=== PATIENT | female | born 1945 | race Two or more races ===

== ENCOUNTER 2019-05-26 01:13 | Inpatient (IN) | payer MEDICARE, OTHER ==
[~2019-05-26] VITALS: Ht 149.9 cm; Wt 66.7 kg
[2019-05-26 04:30] VITALS: BP 156/66
--- NOTE | 2019-05-26 04:30 | NUR ---
GPS ADMISSION NOTES: ADMITTED THIS 74-Y/O, FEMALE, FROM [facility], ARRIVED ON THIS UNIT AT 0430 VIA GURNEY WITH 2 EMT'S VIA AMBULANCE. PATIENT ADMITTED ON 5150 HOLD FOR DTS. PER HOLD PT. STATED SHE WANTED TO KILL HERSELF BY WALKING IN FRONT OF A SPEEDING CAR IN THE STREET. PATIENT STATED SHE DID NOT WANT TO LIVE ANYMORE. UPON FACE TO FACE ASSESSMENT, PATIENT IS A&O X3-4, DEPRESSED, UNKEMPT, DISHEVELED, CALM AND COOPERATIVE WITH CARE. AMBULATORY WITH UNSTEADY GAIT. IN NO APPARENT DISTRESS NOTED. DENIES SI/HI/AVH AT THIS TIME. SKIN ASSESSMENT DONE, PICTURES TAKEN & PLACED IN THE CHART. WOUND CONSULT ORDERED. PATIENT REFUSED TO SIGN ADMISSION CONSENTS, STATES "I AM EXHAUSTED". PT'S RIGHTS HANDBOOK & PT. GUIDELINES BOOK GIVEN & DISCUSSED TO THE PATIENT. PT BELONGINGS WERE INVENTORIED & CHECKED FOR CONTRABAND. PT. IS UNDER THE PSYCHIATRIC CARE OF DR. PALMA, ORDERS OBTAINED & UNDER THE MEDICAL CARE OF DR. BURLESON. PATIENT EDUCATED TO THE USE OF CALL GARCIA. BED ALARM ON. ENVIRONMENTAL SAFETY CHECK DONE. BED LOCKED & IN LOW POSITION. WILL CONTINUE TO MONITOR Q15 MINUTES FOR SAFETY & BEHAVIOR.
[2019-05-26] MEDS ORDERED: MAG HYDROX/AL HYDROX/SIMETH 30 ML UDC PO PRN (05:00)
[2019-05-26] MEDS ORDERED: MAGNESIUM HYDROXIDE 30 ML UDC PO PRN (05:00)
[2019-05-26] MEDS ORDERED: BLOOD SUGAR DIAGNOSTIC 1 EACH STRIP IN ONE (05:00)
[2019-05-26] MEDS ORDERED: METF-440 PO (05:30)
[2019-05-26] MEDS ORDERED: INSU100C10 SQ (05:30)
[2019-05-26] MEDS ORDERED: INSU100V7 SQ (05:30)
[2019-05-26] MEDS ORDERED: BENZ0.5T43 PO (05:30)
[2019-05-26] MEDS ORDERED: ALBU18HF2 INH (05:30)
[2019-05-26] MEDS ORDERED: DONE5TAB34 PO (05:30)
[2019-05-26] MEDS ORDERED: GLIP5TAB13 PO (05:30)
[2019-05-26] MEDS ORDERED: LEVO200T8 PO (05:30)
[2019-05-26] MEDS ORDERED: MEMA5TAB42 PO (05:30)
[2019-05-26] MEDS ORDERED: HALO2ORA PO (05:30)
[2019-05-26] MEDS ORDERED: ATOR10TA PO (05:30)
[2019-05-26] MEDS ORDERED: DEXTROSE 50%-WATER 50 ML DISP.SYRIN IV PRN ×3 (06:00→12:30)
[2019-05-26] MEDS ORDERED: INSULIN REGULAR, HUMAN 100 UNIT/ML 3 ML VIAL SQ PRN ×2 (06:00→07:00)
[2019-05-26] MEDS ORDERED: *INSULIN REGULAR(HUMULIN R)HUM 100 UNIT/ML VIAL SQ PRN ×2 (06:00→07:00)
--- NOTE | 2019-05-26 06:10 | NUR ---
GPS-RN CALLED [employer] SPOKE WITH [employer] DRIVER COURTNEY ARBOLEDA NOTIFIED REGARDING PATIENT'S ADMISSION AND MED RECON NEEDS TO BE RECONCILED. LEFT VOICE MESSAGE TO PATIENT'S SON LESVIA WILL ENDORSE TO THE DAY SHIFT NURSE FOR CONTINUITY OF CARE.
[2019-05-26] MEDS ORDERED: BLOOD SUGAR DIAGNOSTIC 1 EACH STRIP VI SCH (07:30)
[2019-05-26] MEDS: BLOOD SUGAR DIAGNOSTIC 1 EACH STRIP VI SCH ×2 (07:44→12:09)
[2019-05-26 08:00] VITALS: BP 152/73
[2019-05-26 08:31] LABS: ALBUMIN 2.8 g/dL (3.4-5.0); BILIRUBIN,TOTAL 0.3 mg/dL (0.2-1.0); POTASSIUM 4.5 mmol/L (3.5-5.1); TOTAL PROTEIN, SERUM 6.8 g/dL (6.4-8.2)
[2019-05-26] MEDS: NICOTINE PATCH (7MG) 7 MG PATCH.TD24 TD SCH (09:00)
[2019-05-26] MEDS: ACETAMINOPHEN 325 MG TABLET PO PRN (09:38)
[2019-05-26] MEDS ORDERED: Z GUARD REMEDY 2 OZ OINT TP PRN (10:30)
--- NOTE | 2019-05-26 10:32 | NUR ---
WOUND CARE CONSULT: PT PRESENTS WITH PIGMENT IRREGULARITIES, DRY SCRATCH ON RT BUTTOCK AND RASH TO BILATERAL ABDOMINAL/GROIN FOLDS, PRESENT ON ADMISSION. RECOMMENDATIONS MADE FOR SKIN PROTECTION AND SKIN CARE. DISCUSSED WITH NURSING STAFF. WILL SEE PRN. PT IS AMBULATORY AND CONTINENT. Addendum: 05/26/19 at 1034 by CURTIS TOLEDO WNDNU Amended: Links added.
--- NOTE | 2019-05-26 11:15 | NUR ---
Family Contact: SW called the pts son, Gabriel ([phone]), and left a message on his voicemail stating that the SW would like to discuss the pts treatment and discharge plan.
[2019-05-26] MEDS: Z GUARD REMEDY 2 OZ OINT TP SCH (11:20)
--- NOTE | 2019-05-26 11:28 | NUR ---
Facility Contact: SW contacted the pts previous facility, [facility] ([phone]), and spoke to the physicist cryogenics who stated that she is familiar with the pt but will have the appropriate admissions individuals call the SW to discuss.
[2019-05-26] MEDS ORDERED: ALBUTEROL FS 2.5 MG/0.5 ML VIAL.NEB NEB PRN (12:30)
[2019-05-26] MEDS: BLOOD SUGAR DIAGNOSTIC 1 EACH STRIP IN SCH ×3 (13:10→21:51)
--- NOTE | 2019-05-26 15:08 | NUR ---
Initial Discharge Plan: Pt currently resides at [address] located at [address] [place], [place] [address]; ([phone]). Per pt, she would like to be discharged to a board and care. SW will work with the pt and the MD regarding appropriate discharge planning. SW will form a safe and proper discharge plan.
--- NOTE | 2019-05-26 15:22 | NUR ---
GROUP NOTE: SW assessed pts ability to participate in group therapy nn this present day discussing "reality testing." Pt not appropriate for group at this time due to her anxious and paranoid behavior. Pt lacks boundaries and is unable to follow directions and engage in a meaningful conversation.
[2019-05-26] MEDS: BENZTROPINE MESYLATE (1 MG) 1 MG TABLET PO SCH (15:49)
[2019-05-26 16:00] VITALS: BP 139/64
[2019-05-26] MEDS: CLOTRIMAZOLE 1% 15 GM TUBE TP SCH (16:40)
[2019-05-26] MEDS: HALOPERIDOL 5 MG TABLET PO SCH (16:52)
[2019-05-26] MEDS: INSULIN REGULAR, HUMAN 100 UNIT/ML 3 ML VIAL SQ PRN ×2 (17:35→22:25)
[2019-05-26] MEDS: BISACODYL (5 MG) 5 MG TABLET.DR PO PRN (18:32)
[2019-05-26 20:33] VITALS: BP 123/76
[2019-05-26] MEDS: TRAZODONE 50 MG TABLET PO SCH (22:14)
[2019-05-26] MEDS: INSULIN GLARGINE, 100 UNIT/ML CARTRIDGE SQ SCH (22:14)
[2019-05-26] MEDS: ATORVASTATIN 10 MG TABLET PO SCH (22:15)
[2019-05-26] MEDS: DONEPEZIL 5 MG TABLET PO SCH (22:15)
[2019-05-26] MEDS: TEMAZEPAM 7.5 MG CAPSULE PO PRN (23:39)
[2019-05-27] MEDS: BENZTROPINE MESYLATE (1 MG) 1 MG TABLET PO SCH ×2 (03:23→17:03)
[2019-05-27] MEDS: HALOPERIDOL 5 MG TABLET PO SCH ×2 (03:24→17:02)
[2019-05-27] MEDS: BLOOD SUGAR DIAGNOSTIC 1 EACH STRIP IN SCH ×4 (07:35→22:16)
[2019-05-27 08:00] VITALS: BP 114/65
[2019-05-27] MEDS: LEVOTHYROXINE SODIUM 100 MCG TABLET PO SCH (08:06)
[2019-05-27] MEDS: NICOTINE PATCH (7MG) 7 MG PATCH.TD24 TD SCH (08:06)
[2019-05-27] MEDS: Z GUARD REMEDY 2 OZ OINT TP SCH (08:07)
[2019-05-27] MEDS: CLOTRIMAZOLE 1% 15 GM TUBE TP SCH ×2 (08:07→17:03)
[2019-05-27] MEDS: glipiZIDE 5 MG TABLET PO SCH (08:09)
[2019-05-27] MEDS: MEMANTINE HCL 5 MG TABLET PO SCH (08:09)
[2019-05-27] MEDS: INSULIN REGULAR, HUMAN 100 UNIT/ML 3 ML VIAL SQ PRN ×2 (08:11→17:39)
[2019-05-27] MEDS: INSULIN GLARGINE, 100 UNIT/ML CARTRIDGE SQ SCH ×2 (08:20→21:00)
[2019-05-27] MEDS: ACETAMINOPHEN 325 MG TABLET PO PRN ×2 (09:04→17:37)
--- NOTE | 2019-05-27 09:05 | NUR ---
RN NOTE: PATIENT C/O HEADACHE. PRN TYLENOL GIVEN.
[2019-05-27 12:03] LABS: BASOPHILS % (AUTO) 0.3 % (0.0-2.0); EOSINOPHILS % (AUTO) 2.2 % (0.0-6.0); HEMATOCRIT 36 % (33-45); HEMOGLOBIN 11.9 g/dL (11.5-14.8); LYMPHOCYTES # (AUTO) 1.4 /CMM (0.8-4.8); LYMPHOCYTES % (AUTO) 14.3 % (20.0-44.0); MEAN CORPUSCULAR HGB CONC 33 g/dl (31.0-36.0); MEAN CORPUSCULAR VOLUME 90 fL (82-100); MONOCYTES # (AUTO) 0.9 /CMM (0.1-1.30); MONOCYTES % (AUTO) 8.7 % (2.0-12.0); NEUTROPHILS # (AUTO) 7.4 /CMM (1.8-8.9); NEUTROPHILS % (AUTO) 74.5 % (43.0-81.0); PLATELET COUNT (AUTO) 339 /CMM (150-450); RED BLOOD CELL COUNT(AUTO) 4.05 MIL/uL (4.0-5.2); WHITE BLOOD COUNT (AUTO) 9.9 K/uL (4.3-11.0)
--- NOTE | 2019-05-27 12:06 | NUR ---
Facility Contact: SW called [facility] ([phone]) and spoke to Attila who stated that they had been in contact with Social Security and they have been informed that the first check will come in June. SW confirmed that the pt can return to the facility at the time of discharge.
[2019-05-27 12:14] LABS: CALCIUM, SERUM 9.7 mg/dL (8.5-10.1); CREATININE 0.9 mg/dL (0.6-1.3); POTASSIUM 4.3 mmol/L (3.5-5.1)
[2019-05-27 12:46] LABS: THYROID STIMULATING HORMONE 0.159 uIU/mL (0.358-3.74)
[2019-05-27 16:00] VITALS: BP 119/55
--- NOTE | 2019-05-27 16:24 | NUR ---
Group Note: SW encouraged pt to participate in group therapy on 05/27/19 at 2pm discussing social supports. Pt is not appropriate for group at this time due to her anxious and paranoid behavior. Pt was seen in the hallway with the phone calling social security and appeared to be disorganized. Pt was deemed inappropriate for group therapy at this time.
[2019-05-27] MEDS: DIVALPROEX SODIUM 250 MG TABLET.DR PO SCH (17:02)
--- NOTE | 2019-05-27 19:01 | NUR ---
PATIENT C/O PAIN. PRN TYLENOL GIVEN.
--- NOTE | 2019-05-27 19:33 | NUR ---
GPS RN NOTE RECEIVED PATIENT RESTING IN BED. IN & OUT OF BED AT TIMES. A & O X 3. NO ACUTE DISTRESS, NO C/O PAIN VERBALIZED AT THIS TIME. EASILY AGITATED. DENIES SI/HI/AVH AT THIS TIME. WILL CONTINUE TO MONITOR FOR SAFETY & BEHAVIOR.
[2019-05-27] MEDS ORDERED: ATORVASTATIN 10 MG TABLET ONE (21:48)
[2019-05-27] MEDS: TRAZODONE 50 MG TABLET PO SCH (22:03)
[2019-05-27] MEDS: DONEPEZIL 5 MG TABLET PO SCH (22:03)
[2019-05-27] MEDS: ATORVASTATIN 10 MG TABLET PO SCH (22:03)
--- NOTE | 2019-05-27 22:17 | NUR ---
GPS RN NOTE PATIENT'S BS WAS CHECKED EARLIER, BS LEVEL WAS 81MG/DL, SNACK & ORANGE JUICE WAS GIVEN, RECHECKED BS LEVEL AGAIN & NOTED TO BE 108 MG/DL. HELD SCHEDULED LANTUS AT 2100. PATIENT ALSO REFUSED TO GET INSULIN DUE TO BS BEING 108 MG/DL. WILL CONTINUE TO MONITOR FOR ANY CHANGES.
--- NOTE | 2019-05-28 01:45 | NUR ---
GPS RN NOTE PATIENT ASKED TO CHECK HER BLOOD SUGAR AND INSISTED TO GET LANTUS INSULIN AT THIS TIME. BS LEVEL CHECKED & IS 120MG/DL. PATIENT DID NOT FINISH HER SNACK. EXPLAINED TO THE PATIENT THAT IF INSULIN IS GIVEN TO HER, BS LEVEL WILL DROP. PATIENT WAS REDIRECTED AT THIS TIME BUT IS COMPLAINT AND NON COMPLAINT WITH CARE. WILL CONTINUE TO MONITOR FOR ANY CHANGES.
[2019-05-28] MEDS: HALOPERIDOL 5 MG TABLET PO SCH ×2 (02:00→14:27)
[2019-05-28] MEDS: BENZTROPINE MESYLATE (1 MG) 1 MG TABLET PO SCH ×2 (02:30→14:27)
[2019-05-28] MEDS: LORAZEPAM 0.5 MG TABLET PO PRN ×2 (02:49→09:48)
--- NOTE | 2019-05-28 02:49 | NUR ---
PRN ATIVAN GIVEN PATIENT IS VERY ANXIOUS & RESTLESS AT THIS TIME, ASKED TO TAKE ATIVAN, PRN ATIVAN 0.5MG PO GIVEN. WILL REASSESS FOR EFFECTIVENESS.
--- NOTE | 2019-05-28 02:54 | NUR ---
REFUSED HALDOL & COGENTIN PATIENT REFUSED TO TAKE HALDOL AT 0200 & COGENTIN 1 MG AT 0230, STATED" I REFUSE & I HAVE THE RIGHT TO REFUSE." WILL CONTINUE TO MONITOR.
--- NOTE | 2019-05-28 03:14 | NUR ---
GPS/RN NOTE: REQUESTING ACCUCHECK, CLAIMING SHE FEELS WEAK. ACCUCHECK 155 MG/DL.
--- NOTE | 2019-05-28 06:44 | NUR ---
GPS RN CLOSING NOTE PATIENT SLEPT 6 HOURS, NO ACUTE DISTRESS NOTED. ANXIOUS, EASILY IRRITATED, ATIVAN GIVEN AT NIGHT. SAFETY MEASURES IN PLACE. WILL ENDORSE TO AM RN TO CONTINUE TO MONITOR FOR SAFETY & BEHAVIOR.
[2019-05-28] MEDS: BLOOD SUGAR DIAGNOSTIC 1 EACH STRIP IN SCH ×4 (07:30→21:49)
[2019-05-28] MEDS: INSULIN REGULAR, HUMAN 100 UNIT/ML 3 ML VIAL SQ PRN ×2 (08:13→14:49)
[2019-05-28] MEDS: INSULIN GLARGINE, 100 UNIT/ML CARTRIDGE SQ SCH ×2 (08:13→21:00)
[2019-05-28] MEDS: LEVOTHYROXINE SODIUM 100 MCG TABLET PO SCH (08:33)
[2019-05-28] MEDS: DIVALPROEX SODIUM 250 MG TABLET.DR PO SCH ×3 (08:33→16:44)
[2019-05-28] MEDS: MEMANTINE HCL 5 MG TABLET PO SCH (08:34)
[2019-05-28] MEDS: glipiZIDE 5 MG TABLET PO SCH (08:34)
[2019-05-28] MEDS: Z GUARD REMEDY 2 OZ OINT TP SCH (08:35)
[2019-05-28] MEDS: NICOTINE PATCH (7MG) 7 MG PATCH.TD24 TD SCH (08:35)
[2019-05-28] MEDS: CLOTRIMAZOLE 1% 15 GM TUBE TP SCH ×2 (08:35→16:46)
--- NOTE | 2019-05-28 09:00 | NUR ---
Family Contact: SW called the pts son, Gabriel ([phone]), and left a message on his voicemail stating that the SW would like to discuss the pts treatment and discharge plan.
--- NOTE | 2019-05-28 09:48 | NUR ---
PATIENT C/O ANXIETY. PRN ATIVAN GIVEN
--- NOTE | 2019-05-28 14:30 | NUR ---
CARE TRANSFERRED TO ALAN CATALAN FROM REGISTRY
[2019-05-28 16:00] VITALS: BP 139/78
--- NOTE | 2019-05-28 19:05 | NUR ---
GPS RN NOTES RECEIVED PT IN BED AWAKE, NO S/S OR COMPLAINTS OF PAIN AT THIS TIME. RESPIRATIONS EVEN AND UNLABORED WITH NO S/S OF ACUTE DISTRESS OR SOB NOTED. PT A/O X3 . PT DENIES SI/HI AT THIS TIME. SAFETY MEASURES IN PLACE WITH BED IN LOWEST LOCKED POSITION WITH SIDE RAILS UP X2. CALL GARCIA WITHIN REACH. WILL CONTINUE TO MONITOR.
[2019-05-28] MEDS: TRAZODONE 50 MG TABLET PO SCH (21:45)
[2019-05-28] MEDS: DONEPEZIL 5 MG TABLET PO SCH (21:46)
[2019-05-28] MEDS: ATORVASTATIN 10 MG TABLET PO SCH (21:46)
[2019-05-29] MEDS: HALOPERIDOL 5 MG TABLET PO SCH ×3 (01:31→20:21)
[2019-05-29] MEDS: BENZTROPINE MESYLATE (1 MG) 1 MG TABLET PO SCH ×3 (01:31→20:21)
--- NOTE | 2019-05-29 01:31 | NUR ---
GPS NOTES PT REFUSED HALDOL AND COGENTIN. PT STATED "I'M ALREADY SLEEPING, DON'T WAKE ME UP, JUST LET ME SLEEP." WILL CONTINUE TO MONITOR.
[2019-05-29] MEDS: LORAZEPAM 0.5 MG TABLET PO PRN ×2 (02:39→14:13)
--- NOTE | 2019-05-29 07:05 | NUR ---
GPS RN NOTES RECEIVED PT IN BED AWAKE, NO S/S OR COMPLAINTS OF PAIN AT THIS TIME. RESPIRATIONS EVEN AND UNLABORED WITH NO S/S OF ACUTE DISTRESS OR SOB NOTED THROUGHOUT SHIFT. PT A/O X3 . PT DENIES SI/HI AT THIS TIME. SAFETY MEASURES IN PLACE WITH BED IN LOWEST LOCKED POSITION WITH SIDE RAILS UP X2. CALL GARCIA WITHIN REACH. WILL ENDORSE TO ONCOMING NURSE FOR MARIA ELENA.
[2019-05-29] MEDS: BLOOD SUGAR DIAGNOSTIC 1 EACH STRIP IN SCH ×4 (07:30→21:39)
--- NOTE | 2019-05-29 07:30 | NUR ---
PT. REFUSED ACCU-CHECK.
[2019-05-29] MEDS: MEMANTINE HCL 5 MG TABLET PO SCH ×2 (09:00→09:51)
[2019-05-29] MEDS: glipiZIDE 5 MG TABLET PO SCH ×2 (09:00→09:51)
[2019-05-29] MEDS: NICOTINE PATCH (7MG) 7 MG PATCH.TD24 TD SCH ×2 (09:00→09:50)
[2019-05-29] MEDS: DIVALPROEX SODIUM 250 MG TABLET.DR PO SCH ×5 (09:00→17:49)
[2019-05-29] MEDS: INSULIN GLARGINE, 100 UNIT/ML CARTRIDGE SQ SCH ×2 (09:00→21:29)
--- NOTE | 2019-05-29 09:00 | NUR ---
PURA NOTIFIED THAT PT. IS REFUSING ACCU-CHECKS SO LANTUS NOT BEING GIVEN. WELL MADE AWARE THAT SHE IS GENERALLY NON-COMPLIANT.
[2019-05-29] MEDS: LEVOTHYROXINE SODIUM 100 MCG TABLET PO SCH (09:50)
[2019-05-29] MEDS: CLOTRIMAZOLE 1% 15 GM TUBE TP SCH ×2 (09:59→17:00)
[2019-05-29] MEDS: Z GUARD REMEDY 2 OZ OINT TP SCH (10:00)
[2019-05-29] MEDS ORDERED: BENZTROPINE MESYLATE (1 MG) 1 MG TABLET PO SCH (11:00)
[2019-05-29] MEDS ORDERED: HALOPERIDOL 5 MG TABLET PO SCH (11:00)
--- NOTE | 2019-05-29 11:02 | NUR ---
MED TIMES CHANGED FOR HALDOL AND COGENTIN-PT. REFUSING BOTH MEDS.
--- NOTE | 2019-05-29 12:54 | NUR ---
REFUSED ACCU-CHECK AT LUNCH TIME.
--- NOTE | 2019-05-29 13:01 | NUR ---
IN RM. A LOT,LYING IN BED,STATES DOES NOT WANT NURSE TO AWAKEN HER.EASILY AGITATED.
[2019-05-29] MEDS: INSULIN REGULAR, HUMAN 100 UNIT/ML 3 ML VIAL SQ PRN ×3 (14:06→21:31)
--- NOTE | 2019-05-29 14:06 | NUR ---
RUNNING UP TO NURSES'S STATION STATES "MY BLOOD SUGAR IS LOW".RN CHECKED AND VERIFIED BGL 290 COVERED WITH INSULIN REG. SL SCALE.HAD EARLIER REFUSED ACCU-CHECK WELL COVERAGE TODAY WITH SL SCALE INSULIN.
--- NOTE | 2019-05-29 14:13 | NUR ---
GIVEN ATIVAN PER PT. REQUEST.AGITATED.
--- NOTE | 2019-05-29 15:47 | NUR ---
RESTING IN RM.
--- NOTE | 2019-05-29 17:09 | NUR ---
REFUSED KAY. MEDS AND ACCU-CHECK.
[2019-05-29 20:16] VITALS: BP 143/84
[2019-05-29] MEDS: ATORVASTATIN 10 MG TABLET PO SCH (21:18)
[2019-05-29] MEDS: DONEPEZIL 5 MG TABLET PO SCH (21:18)
[2019-05-29] MEDS: TRAZODONE 50 MG TABLET PO SCH (21:18)
[2019-05-30] MEDS: TEMAZEPAM 7.5 MG CAPSULE PO PRN (00:26)
--- NOTE | 2019-05-30 00:27 | NUR ---
GPS RN NOTES: PT C/O UNABLE TO SLEEP. PT STATED, " CAN I HAVE A SLEEPING PILL PLEASE?" CHECKED PT VITALS WNL. OFFERED RESTORIL 7.5 MG PO PRN ORDERED. PT AGREED. ADMINISTER MEDICATION ORDERED. PT TOLERATED WELL CONTINUE TO MONITOR.
[2019-05-30 00:30] VITALS: BP 125/73
[2019-05-30] MEDS: LORAZEPAM 0.5 MG TABLET PO PRN ×2 (02:25→15:06)
--- NOTE | 2019-05-30 02:25 | NUR ---
GPS RN NOTE, PATIENT HAS A COMPLAINT OF FEELING ANXIOUS EVIDENCED BY HER SLAMMING HER BEDROOM DOOR A SCREAMING AT THE LOUDLY. PATIENT VITAL SIGNS ARE STABLE. GAVE ATIVAN 0.5MG PO Q6HR PRN ORDERED. WILL REASSESS FOR ANXIETY AND I WILL CONTINUE TO MONITOR THIS PATIENT.
--- NOTE | 2019-05-30 02:58 | NUR ---
GPS RN NOTES: PT YELLING AND SCREAMING IN HER ROOM. PT STARTED TO GET VERBALLY AGGRESSIVE TOWARDS STAFF. PT THROWING WATER PITCHER AT STAFF. PT POSES DANGER TO SELF BY TRYING TO STRANGLE SELF W/ ALLISON PAD AND GOWN. PT POSES DANGER TO OTHERS BY STRIKING OUT ON STAFF. PT IS DISORIENTED AND HIGH POTENTIAL FOR VIOLENCE. ATTEMPTED REORIENTED TO PERSON PLACE AND TIME. ATTEMPTED DIVERSION AND PO MEDICATION GIVEN W/ NO POSITIVE AFFECT. PAGED DR TAYLOR INFORMED HER OF MY FINDINGS. ORDERED FOR ZYPREXA 5MG IM X1. ADMINISTERED MEDICATION ORDERED W/ THE HELP OF STAFF. PT TOLERATED MEDICATION WELL. PT IS STILL ACTIVE FOR SUICIDE. REQUESTED 1 TO 1 SITTER. WILL CONTINUE TO MONITOR PT W/ THE HELP OF STAFF.
[2019-05-30] MEDS ORDERED: OLANZAPINE 10 MG VIAL IM ONE (03:15)
[2019-05-30] MEDS: BLOOD SUGAR DIAGNOSTIC 1 EACH STRIP IN SCH ×4 (07:37→21:49)
[2019-05-30] MEDS: INSULIN REGULAR, HUMAN 100 UNIT/ML 3 ML VIAL SQ PRN ×2 (07:43→21:50)
[2019-05-30] MEDS: LEVOTHYROXINE SODIUM 100 MCG TABLET PO SCH (07:46)
[2019-05-30] MEDS: NICOTINE PATCH (7MG) 7 MG PATCH.TD24 TD SCH (08:01)
[2019-05-30] MEDS: HALOPERIDOL 5 MG TABLET PO SCH ×2 (09:41→21:23)
[2019-05-30] MEDS: CLOTRIMAZOLE 1% 15 GM TUBE TP SCH ×2 (09:41→17:00)
[2019-05-30] MEDS: MEMANTINE HCL 5 MG TABLET PO SCH (09:41)
[2019-05-30] MEDS: glipiZIDE 5 MG TABLET PO SCH (09:41)
[2019-05-30] MEDS: DIVALPROEX SODIUM 250 MG TABLET.DR PO SCH ×2 (09:41→12:48)
[2019-05-30] MEDS: INSULIN GLARGINE, 100 UNIT/ML CARTRIDGE SQ SCH ×2 (09:47→21:51)
[2019-05-30] MEDS: Z GUARD REMEDY 2 OZ OINT TP SCH (09:48)
[2019-05-30] MEDS: BENZTROPINE MESYLATE (1 MG) 1 MG TABLET PO SCH ×2 (11:15→21:23)
[2019-05-30] MEDS ORDERED: DIVALPROEX SODIUM 250 MG TABLET.DR PO SCH (13:00)
[2019-05-30] MEDS ORDERED: HALOPERIDOL 5 MG TABLET PO SCH (13:00)
--- NOTE | 2019-05-30 13:11 | NUR ---
DEPAKOTE 250MG PO ADMINISTERED 22 MINUTES AGO. NEW ORDER FOR 1300 WILL BE DISREGARDED. SAME MED, SAME DOSE.
--- NOTE | 2019-05-30 15:07 | NUR ---
gps rn note: patient anxious, yelling, threatening to call 911. wants to speak to security. explained hold to her. said she does not care she will leave and when she will leaves she will "hang herself and be done with it". ativan administered po 1mg as ordered prn for anxiety.
--- NOTE | 2019-05-30 15:13 | NUR ---
gps rn note patient making suicidal gestures. wrapping blanket around throat. distracted and redirected. with 1:1 sitter at bedside
[2019-05-30] MEDS ORDERED: LORAZEPAM 0.5 MG TABLET PO PRN (17:00)
--- NOTE | 2019-05-30 17:24 | NUR ---
gps rn note: Patient aggressive and refusing accucheck and stating that she will not take any medication later either. she "does not care" "it is my right".
[2019-05-30] MEDS ORDERED: DIVALPROEX SODIUM 500 MG TABLET.DR PO SCH (20:00)
--- NOTE | 2019-05-30 20:15 | NUR ---
GPS RN NOTES: PT REFUSED 1999 MEDICATION DEPAKOTE 500MG PO ORDERED. PT STARTED YELLING AND STATED, " IM NOT TAKING THAT CRAP. LEAVE ME ALONE!" EXPLAINED THE RISKS AND BENEFITS X3 STILL REFUSED X3. CONTINUE TO MONITOR.
[2019-05-30 20:38] VITALS: BP 151/72
[2019-05-30] MEDS: DONEPEZIL 5 MG TABLET PO SCH (21:23)
[2019-05-30] MEDS: ATORVASTATIN 10 MG TABLET PO SCH (21:24)
--- NOTE | 2019-05-31 00:23 | NUR ---
GPS RN NOTES: UPON DOING ROUNDS, PT IN ROOM SITTING IN BED YELLING. SITTER IS WITH PATIENT. PT STATED, " I DONT WANT TO SLEEP. I HAVE THE RIGHT TO NOT SLEEP!" OFFERED RESTORIL PO PRN ORDERED. PT REFUSED AND STATED, "I DONT WANT TO TAKE THAT MEDICATION. GO TO HELL!" EXPLAINED THE RISKED AND BENEFITS X3 STILL REFUSED. CONTINUE TO MONITOR.
[2019-05-31] MEDS: TEMAZEPAM 7.5 MG CAPSULE PO PRN (00:40)
--- NOTE | 2019-05-31 00:42 | NUR ---
GPS RN NOTES: PT CALLED NURSE AND STATED, "I NEED THAT PILL TO SLEEP NOW!" OFFERED RESTORIL 7.5 MG PO PRN ORDERED. ADMINISTERED MEDICATION ORDERED. PT TOLERATED MEDICATION WELL. CONTINUE TO MONITOR.
[2019-05-31] MEDS: LORAZEPAM 0.5 MG TABLET PO PRN (03:09)
--- NOTE | 2019-05-31 03:13 | NUR ---
GPS RN NOTES: PT YELLING IN HER ROOM. UPON ENTERING PT ROOM, PT THROWING ALL HER BED LINEN ON THE FLOOR AND WATER PITCHER . SITTER W/ THE PT IN ROOM. PT C/O OF FEELING ANXIOUS. OFFERED ATIVAN 1MG PO PRN ORDERED. PT AGREED AND ADMINISTERED MEDICATION. PT TOLERATED MEDICATION WELL. PT SATED, "GET OUT OF MY ROOM!" CONTINUE TO MONITOR.
--- NOTE | 2019-05-31 05:26 | NUR ---
GPS RN NOTES: PATIENT MAKING SUICIDAL GESTURES. PT WAS WRAPPING SHEETS AROUND THROAT. DISTRACTED AND REDIRECTED PT. PT IS W/ 1:1 SITTER AT BEDSIDE. CONTINUE TO MONITOR.
--- NOTE | 2019-05-31 06:48 | NUR ---
GPS RN NOTES: PT THREW DOWN SIDE CABINET IN HER ROOM. PT WITH SITTER AT BEDSIDE. PT YELLING AND SCREAMING INAPPROPRIATE LANGUAGE TOWARDS STAFF. PT THROWING HER COMB AT THE FLOOR. WHEN SITTER TOOK COMB AWAY FROM PT, SHE PULLED THE COMB AWAY FROM THE SITTER AND SCRATCHED HER LEFT HAND. TREATMENT ADMINISTERED AND PT TOLERATED WELL. REDIRECTED AND DISTRACTED PT. 1:1 SITTER AT BEDSIDE. CONTINUE TO MONITOR
[2019-05-31] MEDS ORDERED: clonazePAM 0.5 MG TABLET PO PRN (07:30)
[2019-05-31] MEDS: BLOOD SUGAR DIAGNOSTIC 1 EACH STRIP IN SCH ×4 (07:31→21:25)
[2019-05-31 08:00] VITALS: BP 153/58
[2019-05-31] MEDS: clonazePAM 0.5 MG TABLET PO SCH ×3 (08:05→16:56)
[2019-05-31] MEDS: BENZTROPINE MESYLATE (1 MG) 1 MG TABLET PO SCH ×2 (08:05→21:00)
[2019-05-31] MEDS: LEVOTHYROXINE SODIUM 100 MCG TABLET PO SCH (08:05)
[2019-05-31] MEDS: glipiZIDE 5 MG TABLET PO SCH (08:05)
[2019-05-31] MEDS: GABAPENTIN 100 MG CAPSULE PO SCH ×2 (08:05→16:56)
[2019-05-31] MEDS: MEMANTINE HCL 5 MG TABLET PO SCH (08:06)
[2019-05-31] MEDS: NICOTINE PATCH (7MG) 7 MG PATCH.TD24 TD SCH (08:06)
[2019-05-31] MEDS: INSULIN REGULAR, HUMAN 100 UNIT/ML 3 ML VIAL SQ PRN ×2 (08:11→21:27)
[2019-05-31] MEDS: CLOTRIMAZOLE 1% 15 GM TUBE TP SCH ×2 (09:13→17:00)
[2019-05-31] MEDS: Z GUARD REMEDY 2 OZ OINT TP SCH (09:13)
[2019-05-31] MEDS: HALOPERIDOL 5 MG TABLET PO SCH ×3 (09:13→21:00)
[2019-05-31] MEDS: INSULIN GLARGINE, 100 UNIT/ML CARTRIDGE SQ SCH ×3 (09:38→22:00)
[2019-05-31] MEDS ORDERED: LORAZEPAM INJ 2 MG/ML VIAL IM STA (10:33)
[2019-05-31] MEDS ORDERED: HALOPERIDOL LACTATE INJ 5 MG/ML VIAL IM STA (10:33)
[2019-05-31] MEDS ORDERED: diphenhydrAMINE HCL 50 MG/ML VIAL IM STA (10:33)
--- NOTE | 2019-05-31 11:42 | NUR ---
GPS RN NOTE: PATIENT IS AGITATED, ASSAULTIVE, BELLIGERENT, YELLING, CURSING, AND THREATENING STAFF. SHE SCREAMED THAT SHE WILL NOT DO HER ACCUCHECKS AND WILL NOT TAKE HER MEDICATION AND INSULIN. PO PRN MEDICATION OFFERED AND REFUSED. PT CALLED 911 WITH HOSPITAL PHONE. PT IS NOT REDIRECTABLE. DIVERSION AND QUIET ENVIRONMENT NOT EFFECTIVE. PATIENT CURRENTLY ON 1:[address] BECKER WAS CALLED AND IM HALL, ATCESARIO, AND NELSON ORDERED FOR BEHAVIOR AND SAFETY OF PATIENT, STAFF, AND ENVIRONMENT.
[2019-05-31 14:09] VITALS: BP 111/67
--- NOTE | 2019-05-31 14:25 | NUR ---
Family Contact: Pts son, Gabriel ([phone]), called the SW and expressed his frustration with the pt being in the hospital once again and stated that he has been taking care of the pt his entire life. He stated that he does not feel as if [facility] if an appropriate placement because it is not locked and he feels like the pt can walk out the door. SW stated that she can send referrals to locked facilities that will be chcf facilities because the pt requires a higher level of care at this time and is not appropriate for an assisted living level.
--- NOTE | 2019-05-31 15:57 | NUR ---
GROUP NOTE: SW encouraged pt to attend group on this present day discussing "discharge planning." Pt unable to attend due to being medicated and sedated, pt received an IM on this present day due to her aggressive behavior.
[2019-05-31 15:59] VITALS: BP 103/52
--- NOTE | 2019-05-31 17:01 | NUR ---
gps arabella note bg 53. 2 OJ administered. dinner pending Addendum: 05/31/19 at 1746 by VAN GOODWIN RN bg [address] dinner[address] Seven hewitt to be made aware
[2019-05-31 18:57] LABS: BASOPHILS # (AUTO) 0.1 /CMM (0.0-0.2); BASOPHILS % (AUTO) 1.3 % (0.0-2.0); EOSINOPHILS % (AUTO) 3.1 % (0.0-6.0); HEMATOCRIT 35 % (33-45); HEMOGLOBIN 11.3 g/dL (11.5-14.8); LYMPHOCYTES # (AUTO) 0.8 /CMM (0.8-4.8); MEAN CORPUSCULAR HGB CONC 33 g/dl (31.0-36.0); MEAN CORPUSCULAR VOLUME 91 fL (82-100); MONOCYTES # (AUTO) 0.8 /CMM (0.1-1.30); MONOCYTES % (AUTO) 9.4 % (2.0-12.0); NEUTROPHILS # (AUTO) 6.2 /CMM (1.8-8.9); NEUTROPHILS % (AUTO) 76.2 % (43.0-81.0); PLATELET COUNT (AUTO) 313 /CMM (150-450); WHITE BLOOD COUNT (AUTO) 8.1 K/uL (4.3-11.0)
[2019-05-31 19:16] LABS: BILIRUBIN,TOTAL 0.3 mg/dL (0.2-1.0); CALCIUM, SERUM 9.6 mg/dL (8.5-10.1); CREATININE 0.9 mg/dL (0.6-1.3); POTASSIUM 4.5 mmol/L (3.5-5.1); TOTAL PROTEIN, SERUM 6.9 g/dL (6.4-8.2)
--- NOTE | 2019-05-31 19:42 | NUR ---
PT WAS RECEIVED FR THE MORNING SHIFT, ON BED SLEEPING, NO S/S OR C/O PAIN AND DISCOMFORT, PT STILL ON 1:1, CONTINUE TO MONITOR PT THROUGHOUT THE SHIFT.
[2019-05-31 20:18] VITALS: BP 123/86
[2019-05-31] MEDS: ATORVASTATIN 10 MG TABLET PO SCH (21:26)
[2019-05-31] MEDS: DONEPEZIL 5 MG TABLET PO SCH (21:26)
--- NOTE | 2019-05-31 23:57 | NUR ---
pts meds returned to the bin due to pt is very asleep and sedated due to the meds shots she got in the morning.
--- NOTE | 2019-06-01 02:00 | NUR ---
pt woke up screaming, talk to pt what she needs, she wants to go to the bathroom, sitter hepl her to the bathroom and after she s back in bed she's asking for sleeping pills, ask charge nurse if its still ok to give pt her prn sleeping meds, she said still ok ...give pt her meds and she went back to bed .
[2019-06-01] MEDS: TEMAZEPAM 7.5 MG CAPSULE PO PRN (02:15)
[2019-06-01] MEDS: LORAZEPAM 0.5 MG TABLET PO PRN ×2 (03:05→09:41)
--- NOTE | 2019-06-01 03:07 | NUR ---
pt woke up again and became restless, given pt prn med ativan 1mg to calm down, continue to monitor pt for any change of behavior.
[2019-06-01] MEDS: BLOOD SUGAR DIAGNOSTIC 1 EACH STRIP IN SCH ×4 (07:30→20:37)
[2019-06-01] MEDS: LEVOTHYROXINE SODIUM 100 MCG TABLET PO SCH (07:45)
[2019-06-01 08:00] VITALS: BP 133/79
[2019-06-01] MEDS: MEMANTINE HCL 5 MG TABLET PO SCH (08:34)
[2019-06-01] MEDS: clonazePAM 0.5 MG TABLET PO SCH ×3 (08:34→16:11)
[2019-06-01] MEDS: BENZTROPINE MESYLATE (1 MG) 1 MG TABLET PO SCH ×2 (08:34→22:05)
[2019-06-01] MEDS: GABAPENTIN 100 MG CAPSULE PO SCH ×2 (08:34→16:11)
[2019-06-01] MEDS: glipiZIDE 5 MG TABLET PO SCH (08:34)
[2019-06-01] MEDS: HALOPERIDOL 5 MG TABLET PO SCH ×3 (08:34→22:05)
[2019-06-01] MEDS: CLOTRIMAZOLE 1% 15 GM TUBE TP SCH ×2 (08:39→16:13)
[2019-06-01] MEDS: Z GUARD REMEDY 2 OZ OINT TP SCH (08:40)
[2019-06-01] MEDS: NICOTINE PATCH (7MG) 7 MG PATCH.TD24 TD SCH (08:45)
--- NOTE | 2019-06-01 09:43 | NUR ---
RN NOTE- PT W AGITATION.. ATIVAN 1 MG PO GIVEN
--- NOTE | 2019-06-01 11:44 | NUR ---
SNF Referral: ANGELA faxed a referral to [facility] with attn to Bernardo to the fax number: [phone].
[2019-06-01] MEDS: INSULIN REGULAR, HUMAN 100 UNIT/ML 3 ML VIAL SQ PRN ×3 (11:59→20:36)
[2019-06-01 16:00] VITALS: BP 129/65
[2019-06-01 20:35] VITALS: BP 153/68
[2019-06-01] MEDS: INSULIN GLARGINE, 100 UNIT/ML CARTRIDGE SQ SCH (20:39)
--- NOTE | 2019-06-01 20:39 | NUR ---
GPS RN NOTE: PATIENT REQUESTING FOOD AND STATED THAT HE IS HUNGRY, EXPLAINED TO THE PATIENT THAT ITS NOT TIME YET AND WE HAVE TO CHECK HER BLOOD SUGAR FIRST. PATIENT GETS UPSET, AGITATED AND INSISTED TO HAVE HER BLOOD SUGAR CHECKED AND GET HER INSULIN ORDERED SO SHE CAN HAVE HER FOOD. BLOOD SUGAR CHECKED =136, INSULINS GIVEN ORDERED. SNACKS GIVEN AND PATIENT APPRECIATED. PATIENT CALMED DOWN AND WENT BACK TO HER ROOM. WILL CONTINUE TO MONITOR Q15 MINS FOR SAFETY.
[2019-06-01] MEDS: DONEPEZIL 5 MG TABLET PO SCH (22:05)
[2019-06-01] MEDS: ATORVASTATIN 10 MG TABLET PO SCH (22:05)
--- NOTE | 2019-06-02 05:30 | NUR ---
GPS RN NOTE: PATIENT IS VERBALLY ABUSIVE, CURSING, AGGRESSIVE, NEEDY AND DEMANDING FOR A DOLLAR, FRITOS AND WANTED TO BE DISCHARGED. EXPLAINED TO THE PATIENT THAT ITS THE PSYCHIATRIST DECISION WHEN SHE WILL DISCHARGED, PATIENT GETS UPSET AND VERBALLY ABUSIVE TO THE STAFF. EXPLANATION AND FIRM REDIRECTIONS PROVIDED. PATIENT CALMED DOWN. WILL CONTINUE TO MONITOR Q15 MINS FOR SAFETY
--- NOTE | 2019-06-02 06:42 | NUR ---
GPS RN NOTE: PATIENT IS LOUD, MANIPULATIVE, HYPERVERBAL, CALLING NAMES, CURSING AT STAFF. LIMIT SETTINGS DONE, REALITY ORIENTATION AND REDIRECTED THE PATIENT. WILL CONTINUE TO MONITOR
[2019-06-02] MEDS: LORAZEPAM 0.5 MG TABLET PO PRN ×2 (06:47→11:01)
--- NOTE | 2019-06-02 06:50 | NUR ---
GPS RN NOTE: ATIVAN 1MG PO GIVEN FOR ANXIETY M/B AGITATION AND AGGRESSIVE BEHAVIOR. WILL CONTINUE TO MONITOR Q15 MINS FOR SAFETY
[2019-06-02] MEDS: BLOOD SUGAR DIAGNOSTIC 1 EACH STRIP IN SCH ×4 (07:45→21:17)
[2019-06-02] MEDS: LEVOTHYROXINE SODIUM 100 MCG TABLET PO SCH (07:49)
[2019-06-02 08:00] VITALS: BP 157/71
[2019-06-02] MEDS: BENZTROPINE MESYLATE (1 MG) 1 MG TABLET PO SCH (08:00)
[2019-06-02] MEDS: GABAPENTIN 100 MG CAPSULE PO SCH ×2 (08:00→16:55)
[2019-06-02] MEDS: glipiZIDE 5 MG TABLET PO SCH (08:00)
[2019-06-02] MEDS: HALOPERIDOL 5 MG TABLET PO SCH ×2 (08:00→12:05)
[2019-06-02] MEDS: clonazePAM 0.5 MG TABLET PO SCH ×3 (08:00→16:55)
[2019-06-02] MEDS: MEMANTINE HCL 5 MG TABLET PO SCH (08:00)
[2019-06-02] MEDS: Z GUARD REMEDY 2 OZ OINT TP SCH (08:01)
[2019-06-02] MEDS: NICOTINE PATCH (7MG) 7 MG PATCH.TD24 TD SCH (08:01)
[2019-06-02] MEDS: CLOTRIMAZOLE 1% 15 GM TUBE TP SCH ×2 (08:01→16:55)
[2019-06-02] MEDS: INSULIN REGULAR, HUMAN 100 UNIT/ML 3 ML VIAL SQ PRN (17:10)
[2019-06-02] MEDS ORDERED: LORAZEPAM INJ 2 MG/ML VIAL IM STA (18:14)
[2019-06-02] MEDS ORDERED: OLANZAPINE 10 MG VIAL IM STA (18:28)
--- NOTE | 2019-06-02 18:44 | NUR ---
GPS/RN - CHEMICAL RESTRAINT PATIENT IS ALERT/ORIENTED X 2-3, GOT VERY AGGRESSIVE, THREW THE WATER PITCHER IN THE DINING AREA, TRIED TO HIT OTHER PATIENT, CURSING, THREATENING AND VERBALLY ABUSIVE TO STAFF, UNABLE TO CONTROL SELF. LESS RESTRICTIVE MEASURES ATTEMPTED SUCH QUIET ENVIRONMENT, DIVERSION AND 1:1 INTERACTION GIVEN BUT INEFFECTIVE. CALLED DR. PALMA, MADE AWARE OF PATIENT'S BEHAVIOR WITH ORDER TO GIVE ATIVAN 2 MG IM X 1 AND ZYPREXA 10 MG IM X 1. MEDICATION ADMINISTERED ORDERED ON THE RIGHT BUTTOCK. WILL CONTINUE TO MONITOR Q15 MINS FOR SAFETY AND BEHAVIOR.
--- NOTE | 2019-06-02 19:35 | NUR ---
GPS RN NOTES RECEIVED ON RA CHAIR,S/P GIVEN SHOT OF ATIVAN 2MG AND ZYPREXA 10MG FOR SEVERE AGITATION.CALM AT THIS TIME AND FOLLOW DIRECTION.FALL PRECAUTION OBSERVED.ON RA CHAIR BEING WATCH IN THE ACTIVITY ROOM.AMBULATE WITH STEADY GAIT.VERBALLY ABUSIVE AT TIMES.WITH POOR SELF-CONTROL.WILL CONTINUE TO MONITOR BEHAVIOR AND MANAGE ACCORDINGLY.
[2019-06-02 20:30] VITALS: BP 157/70
--- NOTE | 2019-06-02 20:30 | NUR ---
GPS RN NOTES REFUSED MEDS AND BLOOD SUGAR CHECK
[2019-06-02] MEDS: ATORVASTATIN 10 MG TABLET PO SCH (21:17)
[2019-06-02] MEDS: INSULIN GLARGINE, 100 UNIT/ML CARTRIDGE SQ SCH (21:18)
--- NOTE | 2019-06-03 05:00 | NUR ---
GPS RN NOTES AWAKE,MAKING NOISE INSIDE THE ROOM.SHE WAS PLACE ON RA CHAIR AND FOR FALL PRECAUTION,BEING WATCH BY JASVIR HERNANDEZ FOR SAFETY
[2019-06-03] MEDS: BLOOD SUGAR DIAGNOSTIC 1 EACH STRIP IN SCH ×4 (07:45→21:05)
[2019-06-03 08:00] VITALS: BP 141/73
[2019-06-03] MEDS: DIVALPROEX SODIUM 250 MG TABLET.DR PO SCH ×4 (08:31→17:20)
[2019-06-03] MEDS: LEVOTHYROXINE SODIUM 100 MCG TABLET PO SCH (08:31)
[2019-06-03] MEDS: glipiZIDE 5 MG TABLET PO SCH (08:32)
[2019-06-03] MEDS: GABAPENTIN 100 MG CAPSULE PO SCH ×2 (08:32→17:20)
[2019-06-03] MEDS: clonazePAM 0.5 MG TABLET PO SCH ×4 (08:32→17:21)
[2019-06-03] MEDS: chlorproMAZINE HCL 25 MG TABLET PO SCH ×4 (08:32→17:21)
[2019-06-03] MEDS: CLOTRIMAZOLE 1% 15 GM TUBE TP SCH ×2 (08:33→17:00)
[2019-06-03] MEDS: Z GUARD REMEDY 2 OZ OINT TP SCH (08:34)
[2019-06-03] MEDS: NICOTINE PATCH (7MG) 7 MG PATCH.TD24 TD SCH (08:34)
[2019-06-03] MEDS: INSULIN REGULAR, HUMAN 100 UNIT/ML 3 ML VIAL SQ PRN ×4 (08:35→21:03)
--- NOTE | 2019-06-03 12:05 | NUR ---
SNF Contact: Cinthya ([phone]) from [facility] stated that the pt is accepted to their facility.
--- NOTE | 2019-06-03 12:06 | NUR ---
SNF Contact: Mk ([phone]) from [facility] called the SW and stated that the pt was accepted to their facility and would be in Rm 1.
[2019-06-03 16:00] VITALS: BP 116/68
[2019-06-03 20:43] VITALS: BP 112/78
[2019-06-03] MEDS: ACETAMINOPHEN 325 MG TABLET PO PRN (20:54)
--- NOTE | 2019-06-03 20:54 | NUR ---
RN GPS NOTES PATIENT COMPLAINT OF PAIN TO NECK AREA, REQUESTING FOR TYLENOL. PRN TYLENOL GIVEN ORDERED, WILL CONTINUE TO MONITOR.
[2019-06-03] MEDS: INSULIN GLARGINE, 100 UNIT/ML CARTRIDGE SQ SCH (21:02)
[2019-06-03] MEDS: ATORVASTATIN 10 MG TABLET PO SCH (21:04)
[2019-06-03] MEDS: LORAZEPAM 0.5 MG TABLET PO PRN (21:36)
--- NOTE | 2019-06-03 21:36 | NUR ---
RN GPS NOTES PATIENT NOTED ANXIOUS REQUESTED FOR ATIVAN PRN ATIVAN GIVEN ORDERED, WILL CONTINUE TO MONITOR FOR EFFECTIVENESS.
[2019-06-04] MEDS: TEMAZEPAM 7.5 MG CAPSULE PO PRN ×2 (00:13→23:54)
--- NOTE | 2019-06-04 00:17 | NUR ---
RN GPS NOTES PATIENT COMPLAINT OF UNABLE TO SLEEP REQUESTED FOR SLEEP AID. RESTORIL PRN OFFERED AND GIVEN ,WILL CONTINUE TO MONITOR FOR EFFECTIVENESS.
[2019-06-04] MEDS ORDERED: LORAZEPAM INJ 2 MG/ML VIAL IM ONE (01:30)
[2019-06-04] MEDS ORDERED: HALOPERIDOL LACTATE INJ 5 MG/ML VIAL IM ONE (01:30)
[2019-06-04] MEDS ORDERED: diphenhydrAMINE HCL 50 MG/ML VIAL IM ONE (01:30)
--- NOTE | 2019-06-04 01:30 | NUR ---
GPS RN NOTES: PT YELLING AND SCREAMING IN HER ROOM. PT STARTED TO GET VERBALLY AGGRESSIVE TOWARDS STAFF. PT THROWING WATER PITCHER AT STAFF. PT POSES DANGER TO OTHERS BY THROWING NEARBY OBJECTS . PT IS DISORIENTED AND HIGH POTENTIAL FOR VIOLENCE. ATTEMPTED REORIENTED TO PERSON PLACE AND TIME. ATTEMPTED DIVERSION AND PO MEDICATION GIVEN W/ NO POSITIVE AFFECT. PAGED DR PALMA INFORMED HIM OF MY FINDINGS. DR PALMA ORDERED FOR HALDOL 5MG, BENADRYL 25MG AND ATIVAN 2MG IM X1. ADMINISTERED MEDICATION ORDERED W/ THE HELP OF STAFF. PT TOLERATED MEDICATION WELL. WILL CONTINUE TO MONITOR PT W/ THE HELP OF STAFF.
[2019-06-04] MEDS: ACETAMINOPHEN 325 MG TABLET PO PRN (05:39)
--- NOTE | 2019-06-04 05:39 | NUR ---
GPS RN NOTE, PATIENT HAS A COMPLAINT OF NECK PAIN AT 4 OUT 10 ON THE PAIN SCALE AND IS REQUESTING TYLENOL AT THIS TIME. PATIENT VITAL SIGNS ARE STABLE. GAVE TYLENOL 650MG PO Q6HR PRN ORDERED. WILL REASSESS PAIN AND I WILL CONTINUE TO MONITOR THIS PATIENT.
[2019-06-04] MEDS: BLOOD SUGAR DIAGNOSTIC 1 EACH STRIP IN SCH ×4 (07:18→21:06)
[2019-06-04] MEDS: INSULIN REGULAR, HUMAN 100 UNIT/ML 3 ML VIAL SQ PRN ×3 (07:30→20:09)
--- NOTE | 2019-06-04 07:30 | NUR ---
INITIAL PT IN WHEEL CHAIR [facility] POCT BLOOD SUGAR DONE (260) INSULIN GIVE THEN MEAL TRAY GIVEN WELL. PT BEGAN TO EAT MEAL. PT CALM COOPERATIVE WILL CONTINUE TO MONITOR.
[2019-06-04] MEDS: LEVOTHYROXINE SODIUM 100 MCG TABLET PO SCH (07:32)
[2019-06-04 08:00] VITALS: BP 119/57
[2019-06-04] MEDS: glipiZIDE 5 MG TABLET PO SCH (08:34)
[2019-06-04] MEDS: DIVALPROEX SODIUM 250 MG TABLET.DR PO SCH ×3 (08:34→17:00)
[2019-06-04] MEDS: GABAPENTIN 100 MG CAPSULE PO SCH ×2 (08:35→17:00)
[2019-06-04] MEDS: NICOTINE PATCH (7MG) 7 MG PATCH.TD24 TD SCH (08:35)
[2019-06-04] MEDS: chlorproMAZINE HCL 25 MG TABLET PO SCH ×3 (08:35→17:00)
[2019-06-04] MEDS: CLOTRIMAZOLE 1% 15 GM TUBE TP SCH ×2 (08:35→17:28)
[2019-06-04] MEDS: clonazePAM 0.5 MG TABLET PO SCH ×3 (08:35→17:00)
[2019-06-04] MEDS: Z GUARD REMEDY 2 OZ OINT TP SCH (08:36)
[2019-06-04] MEDS: LORAZEPAM 0.5 MG TABLET PO PRN (09:55)
[2019-06-04 16:00] VITALS: BP 160/91
--- NOTE | 2019-06-04 19:18 | NUR ---
CLOSING PT WONDERING BROWN IN WHEEL CHAIR ALL SHIFT REQUESTING NURSE FOR 12 HOURS WANT THE TELEPHONE WANTS CLOTHES WASH ETC. PT COMPLIANT WITH AM AND NOON MEDICATIONS BUT REFUSED PM MEDIATIONS. WILL ENDORSE CARE TO PM RN FOR CONTINUITY OF CARE.
[2019-06-04] MEDS: INSULIN GLARGINE, 100 UNIT/ML CARTRIDGE SQ SCH (21:08)
[2019-06-04 21:10] VITALS: BP 129/71
[2019-06-04] MEDS: ATORVASTATIN 10 MG TABLET PO SCH (21:10)
[2019-06-05] MEDS: BLOOD SUGAR DIAGNOSTIC 1 EACH STRIP IN SCH ×4 (07:40→21:17)
[2019-06-05] MEDS: LEVOTHYROXINE SODIUM 100 MCG TABLET PO SCH (07:41)
[2019-06-05] MEDS: INSULIN REGULAR, HUMAN 100 UNIT/ML 3 ML VIAL SQ PRN ×4 (07:45→21:25)
[2019-06-05 08:00] VITALS: BP 145/75
[2019-06-05] MEDS: chlorproMAZINE HCL 25 MG TABLET PO SCH ×3 (08:18→16:56)
[2019-06-05] MEDS: GABAPENTIN 100 MG CAPSULE PO SCH ×2 (08:18→16:56)
[2019-06-05] MEDS: DIVALPROEX SODIUM 250 MG TABLET.DR PO SCH ×3 (08:18→16:56)
[2019-06-05] MEDS: clonazePAM 0.5 MG TABLET PO SCH ×3 (08:18→16:56)
[2019-06-05] MEDS: glipiZIDE 5 MG TABLET PO SCH (08:18)
[2019-06-05] MEDS: NICOTINE PATCH (7MG) 7 MG PATCH.TD24 TD SCH (08:18)
[2019-06-05] MEDS: Z GUARD REMEDY 2 OZ OINT TP SCH (08:22)
[2019-06-05] MEDS: CLOTRIMAZOLE 1% 15 GM TUBE TP SCH ×2 (08:22→16:56)
[2019-06-05 16:00] VITALS: BP 130/75
[2019-06-05 20:19] VITALS: BP 134/65
[2019-06-05] MEDS: ATORVASTATIN 10 MG TABLET PO SCH (21:17)
[2019-06-05] MEDS: INSULIN GLARGINE, 100 UNIT/ML CARTRIDGE SQ SCH (21:20)
[2019-06-05] MEDS: TEMAZEPAM 7.5 MG CAPSULE PO PRN (21:24)
--- NOTE | 2019-06-05 21:25 | NUR ---
RN NOTES BSL- 152MG/DL. 2 UNITS INSULIN GIVEN PER SLIDING SCALE. SNACKS PROVIDED
[2019-06-05] MEDS: BISACODYL (5 MG) 5 MG TABLET.DR PO PRN (22:45)
[2019-06-06] MEDS: LORAZEPAM 0.5 MG TABLET PO PRN ×3 (02:36→18:52)
--- NOTE | 2019-06-06 02:36 | NUR ---
RN NOTES PATIENT C/O FEELING ANXIOUS. ATIVAN 1MG PO GIVEN ORDERED
[2019-06-06] MEDS: BLOOD SUGAR DIAGNOSTIC 1 EACH STRIP IN SCH ×4 (07:30→21:20)
[2019-06-06 08:00] VITALS: BP 124/61
--- NOTE | 2019-06-06 08:28 | NUR ---
RN NOTES ADMINISTERED ATIVAN 1 MG PO PRN FOR ANXIETY, PARANOIA, V/S TAKEN BP-106/56, P-75, CONTINUED MONITORING.
[2019-06-06] MEDS: LEVOTHYROXINE SODIUM 100 MCG TABLET PO SCH (08:36)
[2019-06-06] MEDS: clonazePAM 0.5 MG TABLET PO SCH ×3 (08:36→18:19)
[2019-06-06] MEDS: NICOTINE PATCH (7MG) 7 MG PATCH.TD24 TD SCH ×2 (08:36→08:46)
[2019-06-06] MEDS: glipiZIDE 5 MG TABLET PO SCH (08:37)
[2019-06-06] MEDS: GABAPENTIN 100 MG CAPSULE PO SCH ×2 (08:37→18:18)
[2019-06-06] MEDS: DIVALPROEX SODIUM 250 MG TABLET.DR PO SCH ×3 (08:37→18:19)
[2019-06-06] MEDS: CLOTRIMAZOLE 1% 15 GM TUBE TP SCH ×2 (08:40→18:18)
[2019-06-06] MEDS: Z GUARD REMEDY 2 OZ OINT TP SCH (08:40)
[2019-06-06] MEDS: chlorproMAZINE HCL 25 MG TABLET PO SCH ×3 (08:45→18:19)
--- NOTE | 2019-06-06 10:37 | NUR ---
RN NOTES ADMINISTERED ATIVAN 1 MG PO PRN FOR ANXIETY PER PATIENT REQUEST, V/S TAKEN BP-124/67, P-100, CONTINUED MONITORING.
[2019-06-06] MEDS: INSULIN REGULAR, HUMAN 100 UNIT/ML 3 ML VIAL SQ PRN ×3 (12:47→21:25)
[2019-06-06 16:00] VITALS: BP 138/71
--- NOTE | 2019-06-06 18:52 | NUR ---
RN NOTES ADMINISTERED ATIVAN 1 MG PO PRN FOR ANXIETY, BP 135/71, P-75. PER PATIENTS REQUEST. CONTINUED MONITORING.
[2019-06-06 20:11] VITALS: BP 141/70
[2019-06-06] MEDS: ATORVASTATIN 10 MG TABLET PO SCH (21:21)
[2019-06-06] MEDS: INSULIN GLARGINE, 100 UNIT/ML CARTRIDGE SQ SCH (21:23)
[2019-06-06] MEDS ORDERED: DIVALPROEX SODIUM 500 MG TABLET.DR PO SCH (22:00)
[2019-06-07] MEDS: TEMAZEPAM 7.5 MG CAPSULE PO PRN ×2 (00:33→21:41)
--- NOTE | 2019-06-07 00:38 | NUR ---
Pt c/o insomnia. Least restrictive measures ineffective. Restoril 7.5 mg po prn given as ordered. Will continue to monitor.
--- NOTE | 2019-06-07 01:38 | NUR ---
Restoril effective. Post 1 hour asleep in bed easy to arouse. Will continue to monitor.
[2019-06-07] MEDS: LORAZEPAM 0.5 MG TABLET PO PRN ×3 (02:48→20:19)
--- NOTE | 2019-06-07 02:49 | NUR ---
Pt c/o anxiety. Least restrictive measures ineffective. Ativan 1mg po prn given as ordered. Will continue to monitor.
--- NOTE | 2019-06-07 03:50 | NUR ---
Post 1 hr ativan effective. Pt calm and lying in bed. Will continue to monitor.
[2019-06-07] MEDS: BLOOD SUGAR DIAGNOSTIC 1 EACH STRIP IN SCH ×4 (07:30→21:42)
--- NOTE | 2019-06-07 07:42 | NUR ---
PATIENT REFUSED 0730 BS CHECK
[2019-06-07 08:00] VITALS: BP 163/112
[2019-06-07] MEDS: GABAPENTIN 100 MG CAPSULE PO SCH ×2 (08:28→17:00)
[2019-06-07] MEDS: NICOTINE PATCH (7MG) 7 MG PATCH.TD24 TD SCH ×2 (08:28→08:37)
[2019-06-07] MEDS: LEVOTHYROXINE SODIUM 100 MCG TABLET PO SCH (08:28)
[2019-06-07] MEDS: DIVALPROEX SODIUM 250 MG TABLET.DR PO SCH ×2 (08:28→12:13)
[2019-06-07] MEDS: clonazePAM 0.5 MG TABLET PO SCH ×3 (08:28→17:00)
[2019-06-07] MEDS: glipiZIDE 5 MG TABLET PO SCH (08:29)
[2019-06-07] MEDS: chlorproMAZINE HCL 25 MG TABLET PO SCH ×3 (08:29→17:00)
[2019-06-07] MEDS: CLOTRIMAZOLE 1% 15 GM TUBE TP SCH ×2 (09:00→17:00)
[2019-06-07] MEDS: Z GUARD REMEDY 2 OZ OINT TP SCH (09:00)
[2019-06-07] MEDS ORDERED: CLONIDINE HCL 0.1 MG TABLET PO PRN (12:00)
--- NOTE | 2019-06-07 14:25 | NUR ---
patient found on the floor, fell from wheelchair in unwitnessed fall. BP 153/78, HR 78, SPO2 98% on RA, RR 18 Addendum: 06/07/19 at 1451 by PARVIZ ARMENTA RN hospitalist pablod Addendum: 06/07/19 at 1453 by PARVIZ ARMENTA RN eyes PERRLA, able to track, awake, alert, talking. denies headache or pain anywhere
--- NOTE | 2019-06-07 14:46 | NUR ---
received call back from romero SNYDER, stated to monitor patient and notify if mental status changes Addendum: 06/07/19 at 1552 by PARVIZ ARMENTA RN incident report [id number]
--- NOTE | 2019-06-07 15:22 | NUR ---
Group Note: SW went to patient's room to invite patient to attend today's support group at 1:00pm regarding holiday sensory activity being held in the activities room. Patient presented laying on their bed sleeping. SW attempted to wake patient but pt. was not easily rousable.
--- NOTE | 2019-06-07 15:54 | NUR ---
patient is sleeping, arousable states "leave me alone"
[2019-06-07 16:00] VITALS: BP 145/67
[2019-06-07 20:31] VITALS: BP 153/73
[2019-06-07] MEDS: ATORVASTATIN 10 MG TABLET PO SCH (21:41)
[2019-06-07] MEDS: INSULIN GLARGINE, 100 UNIT/ML CARTRIDGE SQ SCH (22:03)
[2019-06-07] MEDS: INSULIN REGULAR, HUMAN 100 UNIT/ML 3 ML VIAL SQ PRN (22:04)
[2019-06-08 08:00] VITALS: BP 141/79
--- NOTE | 2019-06-08 08:00 | NUR ---
gps ov buggyman: initial assessment in bed awake, a/ox4. no c/o pain or any discomfort. sitter at bedside. denies si/hi at this time. will continue to monitor.
[2019-06-08] MEDS: glipiZIDE 5 MG TABLET PO SCH (08:47)
[2019-06-08] MEDS: clonazePAM 0.5 MG TABLET PO SCH ×4 (08:47→17:00)
[2019-06-08] MEDS: LEVOTHYROXINE SODIUM 100 MCG TABLET PO SCH (08:47)
[2019-06-08] MEDS: GABAPENTIN 100 MG CAPSULE PO SCH ×3 (08:47→17:00)
[2019-06-08] MEDS: DIVALPROEX SODIUM 250 MG TABLET.DR PO SCH ×2 (08:47→13:50)
[2019-06-08] MEDS: NICOTINE PATCH (7MG) 7 MG PATCH.TD24 TD SCH (08:47)
[2019-06-08] MEDS: BLOOD SUGAR DIAGNOSTIC 1 EACH STRIP IN SCH ×5 (08:47→21:09)
[2019-06-08] MEDS: CLOTRIMAZOLE 1% 15 GM TUBE TP SCH ×3 (09:02→17:03)
[2019-06-08] MEDS: Z GUARD REMEDY 2 OZ OINT TP SCH (09:08)
[2019-06-08] MEDS: chlorproMAZINE HCL 25 MG TABLET PO SCH ×4 (10:47→17:00)
[2019-06-08] MEDS: INSULIN REGULAR, HUMAN 100 UNIT/ML 3 ML VIAL SQ PRN ×2 (11:55→21:08)
--- NOTE | 2019-06-08 12:00 | NUR ---
gps ov whirley operator: notes lunch served. sitter remains at bedside. no distress noted. will monitor.
[2019-06-08 16:00] VITALS: BP 109/67
--- NOTE | 2019-06-08 16:25 | NUR ---
gps ov cw operator: notes brought pt back down with all belongings. report given to michael (rn) for continuity of care.
--- NOTE | 2019-06-08 16:38 | NUR ---
RN NOTES Patient refused night medications x4.
[2019-06-08 20:26] VITALS: BP 106/51
[2019-06-08] MEDS: ATORVASTATIN 10 MG TABLET PO SCH (21:09)
[2019-06-08] MEDS: INSULIN GLARGINE, 100 UNIT/ML CARTRIDGE SQ SCH (21:12)
[2019-06-09] MEDS: BLOOD SUGAR DIAGNOSTIC 1 EACH STRIP IN SCH ×2 (07:30→12:26)
[2019-06-09] MEDS: INSULIN REGULAR, HUMAN 100 UNIT/ML 3 ML VIAL SQ PRN ×2 (07:32→12:24)
[2019-06-09] MEDS: LEVOTHYROXINE SODIUM 100 MCG TABLET PO SCH (07:58)
[2019-06-09 08:00] VITALS: BP 145/98
[2019-06-09] MEDS: GABAPENTIN 100 MG CAPSULE PO SCH (08:44)
[2019-06-09] MEDS: chlorproMAZINE HCL 25 MG TABLET PO SCH ×2 (08:44→12:58)
[2019-06-09] MEDS: DIVALPROEX SODIUM 250 MG TABLET.DR PO SCH ×2 (08:44→12:58)
[2019-06-09] MEDS: glipiZIDE 5 MG TABLET PO SCH (08:44)
[2019-06-09] MEDS: clonazePAM 0.5 MG TABLET PO SCH ×2 (08:44→12:58)
--- NOTE | 2019-06-09 08:48 | NUR ---
Family Contact: ANGELA called the pts son, Gabriel ([phone]), and left a message on his voicemail stating that the pt is being discharged to [facility]. ANGELA stated that the SW will be available if he has any questions.
--- NOTE | 2019-06-09 08:49 | NUR ---
Facility Contact: ANGELA called [address] ([phone]) and left a message for Attila to give the SW a call regarding the pt.
--- NOTE | 2019-06-09 08:50 | NUR ---
SNF Contact: ANGELA called Mk ([phone]) from [facility] and informed her that the pt is being discharged today. She stated that there is a female bed available for the pt.
[2019-06-09] MEDS: NICOTINE PATCH (7MG) 7 MG PATCH.TD24 TD SCH (09:00)
[2019-06-09] MEDS: CLOTRIMAZOLE 1% 15 GM TUBE TP SCH (09:04)
[2019-06-09] MEDS: Z GUARD REMEDY 2 OZ OINT TP SCH (09:05)
--- NOTE | 2019-06-09 11:19 | NUR ---
Family Contact: ANGELA called the pts son, Gabriel ([phone]), and informed him that the pt is being discharged today. He stated that he would like the previous facility to be notified and ANGELA stated that she has been attempting to inform them.
--- NOTE | 2019-06-09 11:54 | NUR ---
Discharge Note: Pt was discharged to [facility] (SNF) located at [address] [place] [address]; ([phone]). Pt was discharged via [facility] at 12pm. Pts son, Gabriel ([phone]), was made aware of the placement. Upon discharge, the pt appeared to be in a dysphoric mood and presented with an agitated affect. Pt denied both suicidal and homicidal ideation as well as auditory and visual hallucinations. Pt will be under the care of her psychiatrist, Dr. Chavez, located at [address], [place] [address]; and her gymnasium teacher, Dr. Orta, located at [facility] [place] [address]; .
--- NOTE | 2019-06-09 12:42 | NUR ---
Facility Contact: SW called [facility] ([phone]) and spoke to the supervisor front and informed them that a message needs to be passed to the [employer] administrator, Attila, about the pt being discharged to a custodial facility and needs all of her belongings transferred.
--- NOTE | 2019-06-09 15:03 | NUR ---
RN NOTE- PT DC AT THIS TIME VIA GURNEY AND AMBULANCE TO [facility]. ALERT, VITAL SIGNS STABLE, ORIENTED TO PERSON PLACE, DENIES SI HI AH VH AT TIME OF DC. VALUABLES RETURNED TO PT, ID WRISTBAND REMOVED. CARE PLAN, ORDERS AND DOCUMENTS GIVEN TO AMBULANCE STAFF IN ATTENDANCE. Addendum: 06/15/19 at 1042 by FELIPA PACHECO RN PT REFUSED DC PHOTOS OF SKIN .
== END 2019-06-09 15:10 | DRG 885 ==
LOC: GPS 04:21 → GPSOV 06-08 08:11 → GPS 06-08 16:20
PROVIDERS: ADMIT Psychiatry & Neurology Psychiatry; ATTEND Internal Medicine
DX: F25.9 Schizoaffective disorder, unspecified (principal); E11.65 Type 2 diabetes mellitus with hyperglycemia; E44.0 Moderate protein-calorie malnutrition; R45.851 Suicidal ideations; E03.9 Hypothyroidism, unspecified; E11.9 Type 2 diabetes mellitus without complications; F32.9 Major depressive disorder, single episode, unspecified; I25.10 Atherosclerotic heart disease of native coronary artery without angina pectoris; Z91.5 Personal history of self-harm; F29 Unspecified psychosis not due to a substance or known physiological condition; E86.0 Dehydration; Z91.19 Patient's noncompliance with other medical treatment and regimen; F03.90 Unspecified dementia, unspecified severity, without behavioral disturbance, psychotic disturbance, mood disturbance, and anxiety; Z90.12 Acquired absence of left breast and nipple; Z80.9 Family history of malignant neoplasm, unspecified; C50.019 Malignant neoplasm of nipple and areola, unspecified female breast
CPT/HCPCS: 36415; 80048-TC; 80053-TC; 80061-TC; 80164-TC; 82962-TC; 84443-TC; 85025-TC; 87081-TC; 97116-TC; 97530-TC; J1200; J1630; J1815; J2060; J3230; J3490; Q0161